=== PATIENT | male | born 1990 | race Caucasian/White ===

== ENCOUNTER 2020-05-06 22:33 | Inpatient (IN) | payer MEDICAID, OTHER ==
[2020-05-06] MEDS ORDERED: Lactated Ringers 1,000 ML IV ONE ×2 (23:01→23:02)
[2020-05-06] MEDS ORDERED: Famotidine 20 MG/2 ML SDV IVPUSH ONE (23:05)
[2020-05-06] MEDS ORDERED: Pantoprazole 40 MG Vial IVPUSH SCH (23:15)
[2020-05-06] MEDS ORDERED: Sucralfate Suspension 1 GM/10 ML Cup PO ONE (23:22)
[2020-05-06] MEDS ORDERED: Ondansetron 4 MG/2 ML SDV IVPUSH ONE (23:22)
--- NOTE | 2020-05-06 23:24 | EDM.PDOC ---
ED HPI GENERAL MEDICAL PROBLEM - General Chief Complaint: Gastrointestinal Problem Stated Complaint: VOMITING BLOOD Time Seen by Provider: 05/06/20 23:05 Source of Information: Reports: Patient, RN. Denies: Old Records History Limitations: Reports: No Limitations - History of Present Illness INITIAL COMMENTS - FREE TEXT/NARRATIVE: 29 yo male presents with dark stools x 2 today and hematemesis x 2 tonight. Is dizzy with standing. Here with his mother. He has no local doctor. Admits to regular ETOH use. No NSAID or anticoagulant use. No hx of PUD. Has had some epigastric and LUQ pain today. No self tx. Onset: Today, Gradual Onset Date: 05/06/20 Duration: Hour(s):, Getting Worse Location: Reports: Abdomen Quality: Reports: Dull Severity: Mild Improves with: Reports: None Worsens with: Reports: Other (unsure) Context: Reports: Other (See HPI) Associated Symptoms: Reports: Nausea/Vomiting. Denies: Fever/Chills Treatments TEACHERS' AIDE: Reports: Other (see below) (none) abd pain Pain Score (Numeric/FACES): 1 - Related Data Allergies Allergy/AdvReac Type Severity Reaction Status Date / Time No Known Allergies Allergy Verified 05/06/20 23:05 Home Meds: Home Meds NK [No Known Home Meds] 05/06/20 [History] Past Medical History Musculoskeletal History: Reports: Fracture - Infectious Disease History Infectious Disease History: Reports: Chicken Pox - Past Surgical History HEENT Surgical History: Reports: TATI Social & Family History - Tobacco Use Tobacco Use Status *Q: Never Tobacco User - Caffeine Use Caffeine Use: Reports: Soda - Recreational Drug Use Recreational Drug Use: No ED ROS GENERAL - Review of Systems Review Of Systems: See Below Constitutional: Reports: No Symptoms HEENT: Reports: No Symptoms Respiratory: Reports: No Symptoms Cardiovascular: Reports: Lightheadedness, Palpitations Endocrine: Reports: No Symptoms GI/Abdominal: Reports: Abdominal Pain (mild at times), Black Stool, Hematemesis, Melena, Nausea, Vomiting. Denies: Bloody Stool, Constipation, Diarrhea, Distension, Hematochezia : Reports: No Symptoms Musculoskeletal: Reports: No Symptoms Skin: Reports: No Symptoms Neurological: Reports: No Symptoms Psychiatric: Reports: No Symptoms ED EXAM, GI/ABD - Physical Exam Exam: See Below Exam Limited By: No Limitations General Appearance: Alert, WD/WN, Mild Distress Eyes: Bilateral: Normal Appearance Ears: Normal External Exam, Normal Canal, Hearing Grossly Normal Nose: Normal Inspection, No Blood Throat/Mouth: Normal Inspection, Normal Lips, Normal Oropharynx, Normal Voice, No Airway Compromise Head: Atraumatic, Normocephalic Neck: Normal Inspection Respiratory/Chest: No Respiratory Distress, Lungs Clear, Normal Breath Sounds, No Accessory Muscle Use Cardiovascular: Regular Rate, Rhythm, No Edema, Tachycardia GI/Abdominal Exam: Normal Bowel Sounds, Soft, Non-Tender, No Distention. No: Distended Back Exam: Normal Inspection Extremities: Normal Inspection, Normal Range of Motion, Non-Tender, No Pedal Edema Neurological: Alert, Oriented, CN II-XII Intact, Normal Cognition, No Motor/Sensory Deficits Psychiatric: Normal Affect, Normal Mood Skin Exam: Warm, Dry, Intact, Normal Color, No Rash, Diaphoretic (mild) Course - Vital Signs Text/Narrative:: Dr. Ball called @ 4206h Last Recorded V/S: Last Vital Signs Temp 37.2 C 05/06/20 23:57 Pulse 128 H 05/06/20 23:57 Resp 14 05/06/20 23:57 BP 128/86 05/06/20 23:57 Pulse Ox 96 05/06/20 23:57 - Orders/Labs/Meds Orders: Active Orders 24 hr Category Date Time Status Cardiac Monitoring [RC] .As Directed Care 05/06/20 23:01 Active Oxygen Therapy Adult [Oxygen Therapy] [RC] ASDIRECTED Care 05/06/20 23:03 Active H. PYLORI STOOL AG, EIA Routine Lab 05/06/20 23:24 Ordered RED BLOOD CELLS LP [BBK] Stat Lab 05/06/20 23:15 Received TYPE AND SCREEN [BBK] Stat Lab 05/06/20 23:15 Received Pantoprazole [ProTONIX IV] Med 05/06/20 23:15 Active 80 mg IVPUSH .BOLUS Medication Orders Pantoprazole Sodium (Protonix Iv) 80 mg IVPUSH .BOLUS JOLIE Last Admin: 05/06/20 23:30 Dose: 80 mg Documented by: LAUREEN Labs: Laboratory Tests 05/06/20 05/06/20 05/06/20 Range/Units 23:10 23:10 23:17 WBC 16.4 H (4.5-11.0) K/uL RBC 4.44 (4.30-5.90) M/uL Hgb 14.6 (12.0-15.0) g/dL Hct 44.4 (40.0-54.0) % MCV 100 H (80-98) fL MCH 33 H (27-31) pg MCHC 33 (32-36) % Plt Count 175 (150-400) K/uL PT 14.8 H (9.5-12.0) sec INR 1.37 H (0.80-1.20) Sodium 140 (140-148) mmol/L Potassium 3.2 L (3.6-5.2) mmol/L Chloride 96 L (100-108) mmol/L Carbon Dioxide 26 (21-32) mmol/L Anion Gap 21.2 H (5.0-14.0) mmol/L BUN 9 (7-18) mg/dL Creatinine 0.9 (0.8-1.3) mg/dL Est Cr Clr Drug Dosing 143.34 mL/min Estimated GFR (MDRD) > 60 (>60) Glucose 135 H (74-106) mg/dL Lactic Acid (0.4-2.0) mmol/L Calcium 8.7 (8.5-10.1) mg/dL Magnesium (1.8-2.4) mg/dL Total Bilirubin 2.3 H (0.2-1.0) mg/dL AST 197 H (15-37) U/L ALT 33 (12-78) U/L Alkaline Phosphatase 157 H (46-116) U/L Total Protein 7.8 (6.4-8.2) g/dL Albumin 3.2 L (3.4-5.0) g/dL Globulin 4.6 H (2.3-3.5) g/dL Albumin/Globulin Ratio 0.7 L (1.2-2.2) 05/06/20 05/06/20 Range/Units 23:25 23:58 WBC (4.5-11.0) K/uL RBC (4.30-5.90) M/uL Hgb (12.0-15.0) g/dL Hct (40.0-54.0) % MCV (80-98) fL MCH (27-31) pg MCHC (32-36) % Plt Count (150-400) K/uL PT (9.5-12.0) sec INR (0.80-1.20) Sodium (140-148) mmol/L Potassium (3.6-5.2) mmol/L Chloride (100-108) mmol/L Carbon Dioxide (21-32) mmol/L Anion Gap (5.0-14.0) mmol/L BUN (7-18) mg/dL Creatinine (0.8-1.3) mg/dL Est Cr Clr Drug Dosing mL/min Estimated GFR (MDRD) (>60) Glucose (74-106) mg/dL Lactic Acid 5.2 H (0.4-2.0) mmol/L Calcium (8.5-10.1) mg/dL Magnesium 1.1 L (1.8-2.4) mg/dL Total Bilirubin (0.2-1.0) mg/dL AST (15-37) U/L ALT (12-78) U/L Alkaline Phosphatase (46-116) U/L Total Protein (6.4-8.2) g/dL Albumin (3.4-5.0) g/dL Globulin (2.3-3.5) g/dL Albumin/Globulin Ratio (1.2-2.2) Meds: Medications Generic Name Dose Route Start Last Admin Trade Name Helderq PRN Reason Stop Dose Admin Pantoprazole Sodium 80 mg 05/06/20 23:15 05/06/20 23:30 Protonix Iv IVPUSH 80 mg .BOLUS JOLIE Administration Discontinued Medications Generic Name Dose Route Start Last Admin Trade Name Freq PRN Reason Stop Dose Admin Famotidine 20 mg 05/06/20 23:05 05/06/20 23:24 Pepcid IVPUSH 05/06/20 23:06 20 mg ONETIME ONE Administration Lactated Ringer's 1,000 mls @ 1,000 mls/hr 05/06/20 23:01 05/06/20 23:24 Ringers, Lactated IV 05/07/20 00:00 1,000 mls/hr BOLUS ONE Administration Lactated Ringer's 1,000 mls @ 1,000 mls/hr 05/06/20 23:02 05/06/20 23:55 Ringers, Lactated IV 05/07/20 00:01 1,000 mls/hr BOLUS ONE Administration Ondansetron HCl 4 mg 05/06/20 23:22 05/06/20 23:39 Zofran IVPUSH 05/06/20 23:23 4 mg ONETIME ONE Administration Sucralfate 1 gm 05/06/20 23:22 05/06/20 23:43 Carafate PO 05/06/20 23:23 1 gm ONETIME ONE Administration Departure - Departure Time of Disposition: 00:10 Disposition: Admitted As Inpatient 68 Condition: Serious Clinical Impression: Hypokalemia, Elevated LFTs, Hypomagnesemia GI bleed Qualifiers: GI bleed type/associated pathology: gastrointestinal hemorrhage with hematemesis Qualified Code(s): K92.0 - Hematemesis - Discharge Information *PRESCRIPTION DRUG MONITORING PROGRAM REVIEWED*: Not Applicable *COPY OF PRESCRIPTION DRUG MONITORING REPORT IN PATIENT MARY: Not Applicable Referrals: PCP,None [Primary Care Provider] - Forms: ED Department Discharge Sepsis Event Note (ED) - Evaluation Sepsis Screening Result: No Definite Risk - Focused Exam Vital Signs: Vital Signs Temp Pulse Resp BP Pulse Ox 05/06/20 23:57 37.2 C 128 H 14 128/86 96 05/06/20 22:58 37.0 C 148 H 13 137/82 93 L 05/06/20 22:57 37.0 C 148 H 13 137/82 93 L - My Orders Last 24 Hours: My Active Orders 05/06/20 23:01 Cardiac Monitoring [RC] .As Directed 05/06/20 23:03 Oxygen Therapy Adult [Oxygen Therapy] [RC] ASDIRECTED 05/06/20 23:15 RED BLOOD CELLS LP [BBK] Stat TYPE AND SCREEN [BBK] Stat Pantoprazole [ProTONIX IV] 80 mg IVPUSH .BOLUS 05/06/20 23:24 H. PYLORI STOOL AG, EIA Routine - Assessment/Plan Last 24 Hours: My Active Orders 05/06/20 23:01 Cardiac Monitoring [RC] .As Directed 05/06/20 23:03 Oxygen Therapy Adult [Oxygen Therapy] [RC] ASDIRECTED 05/06/20 23:15 RED BLOOD CELLS LP [BBK] Stat TYPE AND SCREEN [BBK] Stat Pantoprazole [ProTONIX IV] 80 mg IVPUSH .BOLUS 05/06/20 23:24 H. PYLORI STOOL AG, EIA Routine
[2020-05-07] MEDS ORDERED: LORazepam 2 MG/ML SDV IM PRN (01:22)
[2020-05-07] MEDS ORDERED: Ondansetron 4 MG/2 ML SDV IVPUSH PRN (01:22)
[2020-05-07] MEDS: Lactated Ringers 1,000 ML IV SCH ×3 (02:06→18:48)
[2020-05-07] MEDS ORDERED: Midazolam 1 MG/ML 2 ML SDV ONE (07:25)
[2020-05-07] MEDS ORDERED: fentaNYL 100 MCG/2 ML SDV ONE (07:25)
[2020-05-07] MEDS ORDERED: Propofol 200 MG/20 ML SDV ONE ×2 (07:25→07:44)
[2020-05-07] MEDS ORDERED: Ondansetron 4 MG/2 ML SDV ONE (07:47)
[2020-05-07] MEDS ORDERED: Lactated Ringers 1,000 ML ONE (07:47)
[2020-05-07] MEDS ORDERED: Pantoprazole 40 MG Vial IVPUSH SCH (08:00)
[2020-05-07] MEDS ORDERED: Pantoprazole 40 MG Vial IVPUSH ONE (08:30)
[2020-05-07] MEDS: Pantoprazole 80 MG in Sodium Chloride 0.9% 100 ML IV SCH ×2 (09:08→17:51)
[2020-05-07] MEDS ORDERED: LORazepam 2 MG/ML SDV IV SCH (10:15)
[2020-05-07] MEDS: Thiamine 100 MG Tab PO SCH (10:19)
[2020-05-07] MEDS: Folic Acid 1 MG Tab PO SCH (10:19)
[2020-05-07] MEDS: Gabapentin 400 MG Cap PO SCH ×2 (10:19→17:54)
[2020-05-07] MEDS: LORazepam 1 MG Tab PO SCH ×3 (10:22→16:05)
--- NOTE | 2020-05-07 12:37 | HP ---
SUBJECTIVE: Mehran Ruiz is a 29-year-old single male from [facility]. CHIEF COMPLAINT: Stomach upset. HISTORY OF PRESENT ILLNESS: A young adult male without a history of chronic health problems. Reports development of nonspecific upper abdominal discomfort as well as anorexia this afternoon with passage of melenic stools and subsequent development of nausea with hematemesis including bright red blood as well as coffee-ground emesis. He has noted abdominal cramping and distention as well. Does have a several week history of intermittent mild dyspepsia with p.r.n. use of calcium antacids. No prior history of chronic GI disease. Denies a history of hepatitis, jaundice, gallbladder disease or peptic ulcer disease. Bowel movements are typically regular, predictable, and brown in appearance. He is a lifelong nonsmoker. Caffeine intake is moderate, estimating 5 to 10 cans of regular Coke drunk daily. Does not use coffee. Alcohol use is high, binge drinking, approximately 20 alcoholic drinks weekly. Does not routinely use nonsteroidals or aspirin product. PAST MEDICAL HISTORY: Previous surgeries include arthroscopy of the left knee and pinning of a fracture of the left thumb in the remote past. No other surgical procedures or hospitalizations. Does have history of previous laceration injuries including right facial area in summer, requiring outpatient surgical repair. ALLERGIES: NONE NOTED. HABITS: No tobacco use. Caffeine use as noted, 5 to 10 regular Cokes per day. Alcohol use of 20 drinks weekly. IMMUNIZATIONS: Does not receive influenza vaccine. Has not had previous COVID vaccine. MEDICATIONS: None used on a regular basis, p.r.n. use of calcium antacids. 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 Currently residing with his parents in their [facility] residence. He generally performs ADLs independently. He drives without difficulty. FAMILY HISTORY: Denies familial history of chronic GI disease or recent acute intestinal infection. No family history of COVID infection. REVIEW OF SYSTEMS: NEUROLOGIC: No history of stroke, seizures, focal weakness. Does not require glasses. CARDIAC: No history of hypertension, diabetes, congenital heart disease, murmur, PR, chest pain, palpitations, or syncope. Mild dizziness is noted when rising upright. RESPIRATORY: Denies asthma, emphysema, chronic cough, tuberculosis, or recent COVID exposure. GASTROINTESTINAL: As above. GENITOURINARY: No chronic renal disease. Voiding stream is strong. No dysuria or incontinence. PHYSICAL EXAMINATION: GENERAL: Appearance is that of an adult male, in no acute distress. Mildly anxious in presentation. VITAL SIGNS: Initial vitals, temperature 37.2 degrees centigrade, pulse is tachycardic at 128, respiratory rate 14, blood pressure 128/86, O2 sats 96% on room air. HEENT: Hearing is intact. Sclerae anicteric. No oropharyngeal lesions. NECK: Brisk carotid pulses. Tachycardic. No murmurs or gallops noted. No JVD. No stridor. LUNGS: Symmetrical, clear, resonant, non-tachypneic. HEART: Tachycardic, regular without murmurs or gallops. ABDOMEN: Active sounds. No guarding, rebound, or referred pain. No obvious organomegaly. No CVA tenderness. Good femoral pulses. No abdominal bruits. GENITOURINARY and RECTAL: Omitted. EXTREMITIES: Warm, pink, and dry. Good turgor. Non-diaphoretic. Good arterial pulses. Brisk capillary refill. Oriented. Sensorium is intact. Engages in conversation. No dizziness or lightheadedness with bedrest. LABORATORY DATA: On admission; WBC 16.4, hemoglobin 14.6, platelet count 175,000. Protime at 14.8 with INR of 1.37. Sodium 140, potassium 3.2, BUN 9, creatinine 0.9, GFR greater than 60, glucose 135 in a nonfasting state. Calcium 8.7, bilirubin elevated at 2.3, AST 197, ALT 33, alkaline phosphatase 157, globulin level is high at 4.6, lactic acid 5.2, magnesium 1.1. IMPRESSION: 1. Acute upper gastrointestinal bleed with hematemesis, coffee-ground emesis, and melenic stools of 1 day's duration. 2. Elevated liver functions suggesting possible liver-induced changes. Consider alcohol- related presentation with patient confirming binge drinking use of alcohol. PLAN: The patient is admitted to the ICU for continued monitoring. Tachycardic rate is evident, though hemoglobin is currently stable at 14.6. We will maintain IV fluid access with LR at 150 mL/hour. Hemoglobins at 2-hour intervals x4. We will transfuse if showing a hemoglobin drop below 10. Consult Surgical Services and request diagnostic EGD in the morning. Additionally for reasons of elevated liver functions, we will review further with hepatitis panel, serum ferritin, iron and total iron-binding capacity as well as upper abdominal ultrasound to assess for hepatobiliary disease. Full code status is instituted. Currently will maintain n.p.o. status for anticipated EGD. Allowed ambulation with standby assistance within the room. Delroy Ball MD /[id number]
--- NOTE | 2020-05-07 13:29 | PCM.PN ---
- General Info Date of Service: 05/07/20 Subjective Update: Mr. Ruiz is a 29-year-old gentleman who was admitted through the emergency department earlier this morning by Dr. Ball with hematemesis secondary to an upper GI bleed. Mr. Ruiz has had a long standing history of alcohol dependence and abuse. He admits that he has been drinking heavier than usual over the past month. Last night he experienced abrupt onset of epigastric abdominal pain associated with hematemesis. He was admitted through the emergency department and has had a mild drop in hemoglobin since admission. There has been no further evidence of active bleeding. EGD performed this morning by Dr. Varela showed evidence of esophageal varices with esophageal erosions and ulcers consistent with a recent bleeding source. There was no evidence of active bleeding blood clots were present. Functional Status: Reports: Urinating - Review of Systems General: Reports: Weakness, Fatigue Pulmonary: Reports: No Symptoms Cardiovascular: Reports: No Symptoms Gastrointestinal: Reports: No Symptoms Genitourinary: Reports: No Symptoms - Patient Data Vitals - Most Recent: Last Vital Signs Temp 98.0 F 05/07/20 12:00 Pulse 120 H 05/07/20 13:00 Resp 20 05/07/20 13:00 BP 138/94 H 05/07/20 13:00 Pulse Ox 93 L 05/07/20 13:00 Weight - Most Recent: 239 lb 1.6 oz I&O - Last 24 Hours: Intake & Output 05/06/20 05/07/20 05/07/20 22:59 06:59 14:59 Intake Total 150 Output Total 400 100 Balance -400 50 Lab Results Last 24 Hours: Laboratory Results - last 24 hr 05/06/20 05/06/20 05/06/20 Range/Units 23:10 23:10 23:15 WBC 16.4 H (4.5-11.0) K/uL RBC 4.44 (4.30-5.90) M/uL Hgb 14.6 (12.0-15.0) g/dL Hct 44.4 (40.0-54.0) % MCV 100 H (80-98) fL MCH 33 H (27-31) pg MCHC 33 (32-36) % Plt Count 175 (150-400) K/uL PT (9.5-12.0) sec INR (0.80-1.20) Sodium 140 (140-148) mmol/L Potassium 3.2 L (3.6-5.2) mmol/L Chloride 96 L (100-108) mmol/L Carbon Dioxide 26 (21-32) mmol/L Anion Gap 21.2 H (5.0-14.0) mmol/L BUN 9 (7-18) mg/dL Creatinine 0.9 (0.8-1.3) mg/dL Est Cr Clr Drug Dosing 143.34 mL/min Estimated GFR (MDRD) > 60 (>60) Glucose 135 H (74-106) mg/dL Lactic Acid (0.4-2.0) mmol/L Calcium 8.7 (8.5-10.1) mg/dL Magnesium (1.8-2.4) mg/dL Iron (65-175) ug/dL TIBC (250-450) ug/dl % Saturation (20-55) % Ferritin (8-388) ng/ml Total Bilirubin 2.3 H (0.2-1.0) mg/dL AST 197 H (15-37) U/L ALT 33 (12-78) U/L Alkaline Phosphatase 157 H (46-116) U/L Total Protein 7.8 (6.4-8.2) g/dL Albumin 3.2 L (3.4-5.0) g/dL Globulin 4.6 H (2.3-3.5) g/dL Albumin/Globulin Ratio 0.7 L (1.2-2.2) SARS CoV-2 RNA Rapid ADAM Blood Type O POSITIVE Gel Antibody Screen Negative Crossmatch See Detail 05/06/20 05/06/20 05/06/20 Range/Units 23:17 23:25 23:58 WBC (4.5-11.0) K/uL RBC (4.30-5.90) M/uL Hgb (12.0-15.0) g/dL Hct (40.0-54.0) % MCV (80-98) fL MCH (27-31) pg MCHC (32-36) % Plt Count (150-400) K/uL PT 14.8 H (9.5-12.0) sec INR 1.37 H (0.80-1.20) Sodium (140-148) mmol/L Potassium (3.6-5.2) mmol/L Chloride (100-108) mmol/L Carbon Dioxide (21-32) mmol/L Anion Gap (5.0-14.0) mmol/L BUN (7-18) mg/dL Creatinine (0.8-1.3) mg/dL Est Cr Clr Drug Dosing mL/min Estimated GFR (MDRD) (>60) Glucose (74-106) mg/dL Lactic Acid 5.2 H (0.4-2.0) mmol/L Calcium (8.5-10.1) mg/dL Magnesium 1.1 L (1.8-2.4) mg/dL Iron (65-175) ug/dL TIBC (250-450) ug/dl % Saturation (20-55) % Ferritin (8-388) ng/ml Total Bilirubin (0.2-1.0) mg/dL AST (15-37) U/L ALT (12-78) U/L Alkaline Phosphatase (46-116) U/L Total Protein (6.4-8.2) g/dL Albumin (3.4-5.0) g/dL Globulin (2.3-3.5) g/dL Albumin/Globulin Ratio (1.2-2.2) SARS CoV-2 RNA Rapid ADAM Blood Type Gel Antibody Screen Crossmatch 05/07/20 05/07/20 05/07/20 Range/Units 01:29 01:29 02:05 WBC 14.4 H (4.5-11.0) K/uL RBC 4.10 L (4.30-5.90) M/uL Hgb 13.5 (12.0-15.0) g/dL Hct 41.1 (40.0-54.0) % MCV 100 H (80-98) fL MCH 33 H (27-31) pg MCHC 33 (32-36) % Plt Count 140 L (150-400) K/uL PT (9.5-12.0) sec INR (0.80-1.20) Sodium (140-148) mmol/L Potassium (3.6-5.2) mmol/L Chloride (100-108) mmol/L Carbon Dioxide (21-32) mmol/L Anion Gap (5.0-14.0) mmol/L BUN (7-18) mg/dL Creatinine (0.8-1.3) mg/dL Est Cr Clr Drug Dosing mL/min Estimated GFR (MDRD) (>60) Glucose (74-106) mg/dL Lactic Acid (0.4-2.0) mmol/L Calcium (8.5-10.1) mg/dL Magnesium (1.8-2.4) mg/dL Iron 179 H (65-175) ug/dL TIBC 257 (250-450) ug/dl % Saturation 70 H (20-55) % Ferritin 1149 H (8-388) ng/ml Total Bilirubin (0.2-1.0) mg/dL AST (15-37) U/L ALT (12-78) U/L Alkaline Phosphatase (46-116) U/L Total Protein (6.4-8.2) g/dL Albumin (3.4-5.0) g/dL Globulin (2.3-3.5) g/dL Albumin/Globulin Ratio (1.2-2.2) SARS CoV-2 RNA Rapid ADAM Blood Type Gel Antibody Screen Crossmatch 05/07/20 05/07/20 05/07/20 Range/Units 04:16 06:00 06:48 WBC 13.8 H 14.9 H (4.5-11.0) K/uL RBC 3.96 L 4.08 L (4.30-5.90) M/uL Hgb 13.1 13.5 (12.0-15.0) g/dL Hct 40.2 41.2 (40.0-54.0) % MCV 102 H 101 H (80-98) fL MCH 33 H 33 H (27-31) pg MCHC 33 33 (32-36) % Plt Count 133 L 130 L (150-400) K/uL PT (9.5-12.0) sec INR (0.80-1.20) Sodium (140-148) mmol/L Potassium (3.6-5.2) mmol/L Chloride (100-108) mmol/L Carbon Dioxide (21-32) mmol/L Anion Gap (5.0-14.0) mmol/L BUN (7-18) mg/dL Creatinine (0.8-1.3) mg/dL Est Cr Clr Drug Dosing mL/min Estimated GFR (MDRD) (>60) Glucose (74-106) mg/dL Lactic Acid (0.4-2.0) mmol/L Calcium (8.5-10.1) mg/dL Magnesium (1.8-2.4) mg/dL Iron (65-175) ug/dL TIBC (250-450) ug/dl % Saturation (20-55) % Ferritin (8-388) ng/ml Total Bilirubin (0.2-1.0) mg/dL AST (15-37) U/L ALT (12-78) U/L Alkaline Phosphatase (46-116) U/L Total Protein (6.4-8.2) g/dL Albumin (3.4-5.0) g/dL Globulin (2.3-3.5) g/dL Albumin/Globulin Ratio (1.2-2.2) SARS CoV-2 RNA Rapid ADAM Negative Blood Type Gel Antibody Screen Crossmatch 05/07/20 05/07/20 Range/Units 08:45 11:00 WBC 14.6 H (4.5-11.0) K/uL RBC 3.98 L (4.30-5.90) M/uL Hgb 13.0 13.0 (12.0-15.0) g/dL Hct 40.1 (40.0-54.0) % MCV 101 H (80-98) fL MCH 33 H (27-31) pg MCHC 32 (32-36) % Plt Count 129 L (150-400) K/uL PT (9.5-12.0) sec INR (0.80-1.20) Sodium (140-148) mmol/L Potassium (3.6-5.2) mmol/L Chloride (100-108) mmol/L Carbon Dioxide (21-32) mmol/L Anion Gap (5.0-14.0) mmol/L BUN (7-18) mg/dL Creatinine (0.8-1.3) mg/dL Est Cr Clr Drug Dosing mL/min Estimated GFR (MDRD) (>60) Glucose (74-106) mg/dL Lactic Acid (0.4-2.0) mmol/L Calcium (8.5-10.1) mg/dL Magnesium (1.8-2.4) mg/dL Iron (65-175) ug/dL TIBC (250-450) ug/dl % Saturation (20-55) % Ferritin (8-388) ng/ml Total Bilirubin (0.2-1.0) mg/dL AST (15-37) U/L ALT (12-78) U/L Alkaline Phosphatase (46-116) U/L Total Protein (6.4-8.2) g/dL Albumin (3.4-5.0) g/dL Globulin (2.3-3.5) g/dL Albumin/Globulin Ratio (1.2-2.2) SARS CoV-2 RNA Rapid ADAM Blood Type Gel Antibody Screen Crossmatch Med Orders - Current: Current Medications Folic Acid (Folic Acid) 1 mg PO DAILY [facility] Last Admin: 05/07/20 10:19 Dose: 1 mg Documented by: Gabapentin (Neurontin) 400 mg PO Q8H [facility] Stop: 05/08/20 10:31 Last Admin: 05/07/20 10:19 Dose: 400 mg Documented by: Pantoprazole Sodium 80 mg/ (Sodium Chloride) 100 mls @ 10 mls/hr IV Q10H [facility] Last Admin: 05/07/20 09:08 Dose: 10 mls/hr Documented by: Lorazepam (Ativan) 0 mg IV ASDIRECTED [facility]; Protocol Lorazepam (Ativan) 0 mg PO ASDIRECTED [facility]OL[facility]; Protocol Last Admin: 05/07/20 12:12 Dose: 2 mg Documented by: Ondansetron HCl (Zofran) 4 mg IVPUSH Q4H PRN PRN Reason: Nausea/Vomiting Last Admin: 05/07/20 04:14 Dose: 4 mg Documented by: Thiamine HCl (Vitamin B-1) 100 mg PO DAILY [facility]OL[facility] Last Admin: 05/07/20 10:19 Dose: 100 mg Documented by: Discontinued Medications Famotidine (Pepcid) 20 mg IVPUSH ONETIME ONE Stop: 05/06/20 23:06 Last Admin: 05/06/20 23:24 Dose: 20 mg Documented by: Fentanyl (Sublimaze) Confirm Administered Dose 100 mcg .ROUTE .STK-MED ONE Stop: 05/07/20 07:26 Lactated Ringer's (Ringers, Lactated) 1,000 mls @ 1,000 mls/hr IV BOLUS ONE Stop: 05/07/20 00:00 Last Admin: 05/06/20 23:24 Dose: 1,000 mls/hr Documented by: Lactated Ringer's (Ringers, Lactated) 1,000 mls @ 1,000 mls/hr IV BOLUS ONE Stop: 05/07/20 00:01 Last Admin: 05/06/20 23:55 Dose: 1,000 mls/hr Documented by: Lactated Ringer's (Ringers, Lactated) 1,000 mls @ 150 mls/hr IV ASDIRECTED [facility] Last Admin: 05/07/20 12:50 Dose: 150 mls/hr Documented by: Lactated Ringer's (Ringers, Lactated) Confirm Administered Dose 1,000 mls @ as directed .ROUTE .STK-MED ONE Stop: 05/07/20 07:48 Lorazepam (Ativan) 1 mg IM Q4H PRN PRN Reason: Anxiety Midazolam HCl (Versed 1 Mg/Ml) Confirm Administered Dose 2 mg .ROUTE .STK-MED ONE Stop: 05/07/20 07:26 Ondansetron HCl (Zofran) 4 mg IVPUSH ONETIME ONE Stop: 05/06/20 23:23 Last Admin: 05/06/20 23:39 Dose: 4 mg Documented by: Ondansetron HCl (Zofran) Confirm Administered Dose 4 mg .ROUTE .STK-MED ONE Stop: 05/07/20 07:48 Pantoprazole Sodium (Protonix Iv) 80 mg IVPUSH .BOLUS [facility] Last Admin: 05/06/20 23:30 Dose: 80 mg Documented by: Pantoprazole Sodium (Protonix Iv) 40 mg IVPUSH ONETIME ONE Stop: 05/07/20 08:31 Last Admin: 05/07/20 09:07 Dose: 40 mg Documented by: Propofol (Diprivan 20 Ml) Confirm Administered Dose 200 mg .ROUTE .STK-MED ONE Stop: 05/07/20 07:26 Propofol (Diprivan 20 Ml) Confirm Administered Dose 200 mg .ROUTE .STK-MED ONE Stop: 05/07/20 07:45 Sucralfate (Carafate) 1 gm PO ONETIME ONE Stop: 05/06/20 23:23 Last Admin: 05/06/20 23:43 Dose: 1 gm Documented by: - Exam Quality Assessment: DVT Prophylaxis General: Alert, Oriented, Cooperative Lungs: Clear to Auscultation, Normal Respiratory Effort Cardiovascular: Regular Rate, Regular Rhythm, No Murmurs GI/Abdominal Exam: Soft, Non-Tender, No Organomegaly, No Distention Back Exam: Normal Inspection, Full Range of Motion Extremities: Non-Tender, No Pedal Edema Sepsis Event Note - Evaluation Sepsis Screening Result: Sepsis Risk - Focused Exam Vital Signs: Vital Signs Temp Pulse Pulse Resp BP Pulse Ox 05/07/20 13:00 120 H 20 138/94 H 93 L 05/07/20 12:00 98.0 F 116 H 19 141/91 H 94 L 05/07/20 11:00 118 H 22 H 148/99 H 90 L 05/07/20 09:15 98.0 F 128 H 19 143/86 H 92 L 05/07/20 09:00 125 H 16 140/81 93 L 05/07/20 08:45 126 H 19 135/89 93 L 05/07/20 08:30 123 H 18 143/81 H 92 L 05/07/20 08:15 98.0 F 129 H 16 143/82 H 91 L 05/07/20 08:10 97.2 F 124 H 135/83 95 05/07/20 08:05 122 H 24 H 130/81 95 05/07/20 08:01 124 H 24 H 139/82 94 L 05/07/20 07:56 130 H 20 120/77 98 05/07/20 07:50 97.5 F 136 H 16 126/68 98 05/07/20 07:29 98.5 F 132 H 18 135/77 93 L 05/07/20 06:00 125 H 18 142/90 H 95 05/07/20 05:00 133 H 18 134/87 94 L 05/07/20 04:00 139 H 18 140/93 H 93 L 05/07/20 03:00 140 H 17 131/82 95 05/07/20 02:00 134 H 16 135/86 94 L 05/07/20 01:26 136 H 11 L 96 - Problem List Review Problem List Initiated/Reviewed/Updated: Yes - My Orders Last 24 Hours: My Active Orders 05/07/20 08:40 Pantoprazole [ProTONIX IV] 80 mg Sodium Chloride 0.9% [Normal Saline] 100 ml IV Q10H 05/07/20 10:09 CIWAA Assessment [RC] Q4H Notify Provider [RC] PRN 05/07/20 10:15 Folic Acid 1 mg PO DAILY LORazepam [Ativan] See Protocol IV ASDIRECTED LORazepam [Ativan] See Protocol PO ASDIRECTED Thiamine [Vitamin B-1] 100 mg PO DAILY 05/07/20 10:30 Gabapentin [Neurontin] 400 mg PO Q8H 05/07/20 13:18 Convert IV to Saline Lock [OM.PC] Routine 05/08/20 05:00 ACTIN (SMOOTH MUSCLE) ANTIBODY Routine ABEBA W/REFLEX Routine CBC WITH AUTO DIFF [HEME] Timed CERULOPLASMIN Routine COMPREHENSIVE METABOLIC PN,CMP [CHEM] Timed INR,PT,PROTHROMBIN TIME [COAG] Timed - Plan Plan:: ASSESSMENT AND PLAN UPPER GI BLEED-noted to have esophageal erosions and ulcers with clots, no evidence of active bleeding. Also found to have esophageal varices consistent with probable underlying liver disease. -Protonix bolus given and started on continuous infusion of Protonix -N.p.o. -Serial hemoglobin levels ALCOHOL WITHDRAWAL-he has already shown evidence of withdrawal with tremor developing this morning. -Gabapentin 400 mg p.o. every 8 hours x4 days, then 200 mg p.o. every 8 hours x4 days -Alcohol withdrawal protocol -Thiamine and folic acid replacement PROBABLE HEPATIC CIRRHOSIS-esophageal varices noted on EGD. He will require further imaging and evaluation. Likely that heavy alcohol use has contributed although he is fairly young at 29. Will require evaluation for other possible causes of liver disease as well. -Further laboratory evaluation; hepatitis panel pending, antimitochondrial antibody, antismooth muscle antibody, ferritin, ceruloplasmin, ABEBA -Further imaging; he is developing alcohol withdrawal and I do not think at this time that he would be able to lie still for further studies, these can be obtained later -Stop all alcohol use ESOPHAGEAL VARICES-likely secondary to underlying significant liver disease -Nadolol 20 mg p.o. daily, titrate dose upward as tolerated -Outpatient follow-up with gastroenterology MAINTENANCE ISSUES -DVT prophylaxis; anticoagulation not indicated with current GI bleed -GI prophylaxis; Protonix as above -Lazaro catheter; not indicated -Nutrition; n.p.o. -Nicotine dependence; not required CODE STATUS-FULL CODE ADMISSION STATUS-patient will be admitted to inpatient status, expect at least a 2 night hospital stay for evaluation and management of problems as outlined above. At the time of this admission I do not reasonably expected evaluation and management of this problem will require more than a 96 hour hospital stay. DISPOSITION-anticipate discharge to home after the hospital stay.
--- NOTE | 2020-05-07 15:28 | CRLUS ---
INDICATION: Abnormal liver function test. Upper GI bleed. TECHNIQUE: Ultrasound abdomen limited. Sonographic images of the right upper quadrant were obtained using swan-scale and color Doppler images. COMPARISON: None FINDINGS: Liver: Hepatic echotexture is diffusely increased consistent with fatty infiltration. It is mildly enlarged measuring 18.1 cm.. No masses. No intrahepatic biliary dilatation. The main portal vein demonstrates hepatopetal flow. Gallbladder: There is a moderate amount of echogenic sludge within the gallbladder lumen. No definite echogenic shadowing calculus. Normal wall thickness. No pericholecystic fluid. Negative sonographic Monroy`s sign. Common bile duct: Normal in caliber measuring 4 mm. Pancreas: Obscured. Right kidney: Measures 10.2 x 4.8 x 6.1 cm. Normal echotexture and cortex. No masses, stones, or hydronephrosis. Vasculature: Upper abdominal IVC is patent. IMPRESSION: 1. Mild hepatomegaly with steatosis. 2. Moderate amount of gallbladder sludge. Dictated by Valentín Carmona MD @ 05/07/2020 3:27:27 PM Dictated by: Valentín Carmona MD @ 05/07/2020 15:27:46 (Electronically Signed)
[2020-05-08] MEDS: Gabapentin 400 MG Cap PO SCH ×3 (03:07→21:14)
[2020-05-08] MEDS: Pantoprazole 80 MG in Sodium Chloride 0.9% 100 ML IV SCH ×4 (03:07→23:06)
[2020-05-08] MEDS: Thiamine 100 MG Tab PO SCH (08:20)
[2020-05-08] MEDS: Folic Acid 1 MG Tab PO SCH (08:20)
--- NOTE | 2020-05-08 11:18 | PCM.PN ---
- General Info Date of Service: 05/08/20 Subjective Update: Mr. Ruiz has been stable since yesterday, with no further evidence of active bleeding. He has had mild symptoms of alcohol withdrawal but nothing severe to this point. He feels more clear and alert than he has for some time. Functional Status: Reports: Urinating - Review of Systems General: Reports: No Symptoms Pulmonary: Reports: No Symptoms Cardiovascular: Reports: No Symptoms Gastrointestinal: Reports: No Symptoms Genitourinary: Reports: No Symptoms - Patient Data Vitals - Most Recent: Last Vital Signs Temp 98.9 F 05/08/20 08:00 Pulse 93 05/08/20 08:20 Resp 12 05/08/20 08:00 BP 143/96 H 05/08/20 08:20 Pulse Ox 95 05/08/20 08:00 Weight - Most Recent: 239 lb 1.6 oz I&O - Last 24 Hours: Intake & Output 05/07/20 05/08/20 05/08/20 22:59 06:59 14:59 Intake Total 1167 425 Output Total 950 Balance 1167 -525 Lab Results Last 24 Hours: Laboratory Results - last 24 hr 05/07/20 05/08/20 05/08/20 Range/Units 11:00 04:00 04:00 WBC 11.6 H (4.5-11.0) K/uL RBC 3.69 L (4.30-5.90) M/uL Hgb 13.0 12.4 (12.0-15.0) g/dL Hct 38.3 L (40.0-54.0) % MCV 104 H (80-98) fL MCH 34 H (27-31) pg MCHC 32 (32-36) % Plt Count 105 L (150-400) K/uL Neut % (Auto) 78 H (36-66) % Lymph % (Auto) 13 L (24-44) % [place] % (Auto) 8 H (2-6) % Eos % (Auto) 0 L (2-4) % Baso % (Auto) 1 (0-1) % PT 14.7 H (9.5-12.0) sec INR 1.36 H (0.80-1.20) Sodium (140-148) mmol/L Potassium (3.6-5.2) mmol/L Chloride (100-108) mmol/L Carbon Dioxide (21-32) mmol/L Anion Gap (5.0-14.0) mmol/L BUN (7-18) mg/dL Creatinine (0.8-1.3) mg/dL Est Cr Clr Drug Dosing mL/min Estimated GFR (MDRD) (>60) Glucose (74-106) mg/dL Calcium (8.5-10.1) mg/dL Total Bilirubin (0.2-1.0) mg/dL AST (15-37) U/L ALT (12-78) U/L Alkaline Phosphatase (46-116) U/L Total Protein (6.4-8.2) g/dL Albumin (3.4-5.0) g/dL Globulin (2.3-3.5) g/dL Albumin/Globulin Ratio (1.2-2.2) 05/08/20 Range/Units 04:00 WBC (4.5-11.0) K/uL RBC (4.30-5.90) M/uL Hgb (12.0-15.0) g/dL Hct (40.0-54.0) % MCV (80-98) fL MCH (27-31) pg MCHC (32-36) % Plt Count (150-400) K/uL Neut % (Auto) (36-66) % Lymph % (Auto) (24-44) % [place] % (Auto) (2-6) % Eos % (Auto) (2-4) % Baso % (Auto) (0-1) % PT (9.5-12.0) sec INR (0.80-1.20) Sodium 139 L (140-148) mmol/L Potassium 3.6 (3.6-5.2) mmol/L Chloride 100 (100-108) mmol/L Carbon Dioxide 30 (21-32) mmol/L Anion Gap 12.6 (5.0-14.0) mmol/L BUN 12 (7-18) mg/dL Creatinine 1.0 (0.8-1.3) mg/dL Est Cr Clr Drug Dosing 129.01 mL/min Estimated GFR (MDRD) > 60 (>60) Glucose 79 (74-106) mg/dL Calcium 8.3 L (8.5-10.1) mg/dL Total Bilirubin 3.9 H D (0.2-1.0) mg/dL AST 162 H (15-37) U/L ALT 26 (12-78) U/L Alkaline Phosphatase 113 (46-116) U/L Total Protein 6.7 (6.4-8.2) g/dL Albumin 2.8 L (3.4-5.0) g/dL Globulin 3.9 H (2.3-3.5) g/dL Albumin/Globulin Ratio 0.7 L (1.2-2.2) Jamir Results Last 24 Hours: Microbiology 05/07/20 08:26 CLOtest - Final Stomach NEGATIVE CLOTEST REFERENCE RANGE: NEGATIVE Med Orders - Current: Current Medications Folic Acid (Folic Acid) 1 mg PO DAILY [facility] Last Admin: 05/08/20 08:20 Dose: 1 mg Documented by: Gabapentin (Neurontin) 400 mg PO Q8H [facility] Stop: 05/11/20 06:01 Pantoprazole Sodium 80 mg/ (Sodium Chloride) 100 mls @ 10 mls/hr IV Q10H [facility] Last Admin: 05/08/20 04:34 Dose: Not Given Documented by: Lorazepam (Ativan) 0 mg IV ASDIRECTED [facility]; Protocol Lorazepam (Ativan) 0 mg PO ASDIRECTED [facility]OL[facility]; Protocol Last Admin: 05/07/20 16:05 Dose: 1 mg Documented by: Nadolol (Naldol) 20 mg PO DAILY [facility] Last Admin: 05/08/20 08:20 Dose: 20 mg Documented by: Ondansetron HCl (Zofran) 4 mg IVPUSH Q4H PRN PRN Reason: Nausea/Vomiting Last Admin: 05/07/20 04:14 Dose: 4 mg Documented by: Thiamine HCl (Vitamin B-1) 100 mg PO DAILY [facility] Last Admin: 05/08/20 08:20 Dose: 100 mg Documented by: Discontinued Medications Famotidine (Pepcid) 20 mg IVPUSH ONETIME ONE Stop: 05/06/20 23:06 Last Admin: 05/06/20 23:24 Dose: 20 mg Documented by: Fentanyl (Sublimaze) Confirm Administered Dose 100 mcg .ROUTE .STK-MED ONE Stop: 05/07/20 07:26 Gabapentin (Neurontin) 400 mg PO Q8H [facility] Stop: 05/11/20 02:31 Last Admin: 05/08/20 03:07 Dose: 400 mg Documented by: Lactated Ringer's (Ringers, Lactated) 1,000 mls @ 1,000 mls/hr IV BOLUS ONE Stop: 05/07/20 00:00 Last Admin: 05/06/20 23:24 Dose: 1,000 mls/hr Documented by: Lactated Ringer's (Ringers, Lactated) 1,000 mls @ 1,000 mls/hr IV BOLUS ONE Stop: 05/07/20 00:01 Last Admin: 05/06/20 23:55 Dose: 1,000 mls/hr Documented by: Lactated Ringer's (Ringers, Lactated) 1,000 mls @ 150 mls/hr IV ASDIRECTED [facility] Last Admin: 05/07/20 18:48 Dose: 150 mls/hr Documented by: Lactated Ringer's (Ringers, Lactated) Confirm Administered Dose 1,000 mls @ as directed .ROUTE .STK-MED ONE Stop: 05/07/20 07:48 Lorazepam (Ativan) 1 mg IM Q4H PRN PRN Reason: Anxiety Midazolam HCl (Versed 1 Mg/Ml) Confirm Administered Dose 2 mg .ROUTE .STK-MED ONE Stop: 05/07/20 07:26 Ondansetron HCl (Zofran) 4 mg IVPUSH ONETIME ONE Stop: 05/06/20 23:23 Last Admin: 05/06/20 23:39 Dose: 4 mg Documented by: Ondansetron HCl (Zofran) Confirm Administered Dose 4 mg .ROUTE .STK-MED ONE Stop: 05/07/20 07:48 Pantoprazole Sodium (Protonix Iv) 80 mg IVPUSH .BOLUS [facility] Last Admin: 05/06/20 23:30 Dose: 80 mg Documented by: Pantoprazole Sodium (Protonix Iv) 40 mg IVPUSH ONETIME ONE Stop: 05/07/20 08:31 Last Admin: 05/07/20 09:07 Dose: 40 mg Documented by: Propofol (Diprivan 20 Ml) Confirm Administered Dose 200 mg .ROUTE .STK-MED ONE Stop: 05/07/20 07:26 Propofol (Diprivan 20 Ml) Confirm Administered Dose 200 mg .ROUTE .STK-MED ONE Stop: 05/07/20 07:45 Sucralfate (Carafate) 1 gm PO ONETIME ONE Stop: 05/06/20 23:23 Last Admin: 05/06/20 23:43 Dose: 1 gm Documented by: - Exam Quality Assessment: Supplemental Oxygen, DVT Prophylaxis General: Alert, Oriented, Cooperative, Mild Distress Lungs: Clear to Auscultation, Normal Respiratory Effort Cardiovascular: Regular Rate, Regular Rhythm GI/Abdominal Exam: Soft, Non-Tender, No Organomegaly, No Distention Extremities: Non-Tender, No Pedal Edema Sepsis Event Note - Evaluation Sepsis Screening Result: No Definite Risk - Focused Exam Vital Signs: Vital Signs Temp Pulse Resp BP BP Pulse Ox 05/08/20 08:20 93 143/96 H 05/08/20 08:00 98.9 F 96 12 143/96 H 95 05/08/20 07:10 93 14 132/87 92 L 05/08/20 06:00 93 24 H 145/101 H 91 L 05/08/20 05:00 91 24 H 136/92 H 92 L 05/08/20 04:00 90 19 125/90 91 L 05/08/20 03:00 96 22 H 139/101 H 92 L 05/08/20 02:00 97.0 F 94 14 143/98 H 92 L 05/08/20 01:00 92 20 130/84 95 05/08/20 00:00 94 20 140/93 H 92 L - Problem List Review Problem List Initiated/Reviewed/Updated: Yes - My Orders Last 24 Hours: My Active Orders 05/07/20 13:18 Convert IV to Saline Lock [OM.PC] Routine 05/07/20 13:45 nadoloL [Naldol] 20 mg PO DAILY 05/08/20 04:00 ACTIN (SMOOTH MUSCLE) ANTIBODY Routine ABEBA W/REFLEX Routine CERULOPLASMIN Routine MITOCHONDRIAL (M2) ANTIBODY Routine 05/08/20 11:13 Abdomen Pelvis w Cont [CT] Urgent Chest 2V [CR] Urgent 05/08/20 14:00 Gabapentin [Neurontin] 400 mg PO Q8H 05/08/20 17:00 HGB [HEMOGLOBIN] [HEME] Stat 05/09/20 05:00 CBC WITH AUTO DIFF [HEME] Timed COMPREHENSIVE METABOLIC PN,CMP [CHEM] Timed INR,PT,PROTHROMBIN TIME [COAG] Timed - Plan Plan:: ASSESSMENT AND PLAN UPPER GI BLEED-noted to have esophageal erosions and ulcers with clots, no evidence of active bleeding. Also found to have esophageal varices consistent with probable underlying liver disease. -continuous infusion of Protonix -Clear liquid diet -Serial hemoglobin levels ALCOHOL WITHDRAWAL-stable since yesterday with only mild symptoms of withdrawal -Gabapentin 400 mg p.o. every 8 hours x4 days, then 200 mg p.o. every 8 hours x4 days -Alcohol withdrawal protocol -Thiamine and folic acid replacement PROBABLE HEPATIC CIRRHOSIS-esophageal varices noted on EGD. He will require further imaging and evaluation. Likely that heavy alcohol use has contributed although he is fairly young at 29. Will require evaluation for other possible causes of liver disease as well. Ultrasound obtained yesterday shows no evidence of obstruction, sludge and stones were noted in the gallbladder -Further laboratory evaluation; hepatitis panel pending, antimitochondrial antibody, antismooth muscle antibody, ferritin, ceruloplasmin, ABEBA -CT scan abdomen pelvis to evaluate elevated liver studies -Stop all alcohol use ESOPHAGEAL VARICES-likely secondary to underlying significant liver disease -Nadolol 20 mg p.o. daily, titrate dose upward as tolerated -Outpatient follow-up with gastroenterology MAINTENANCE ISSUES -DVT prophylaxis; anticoagulation not indicated with current GI bleed -GI prophylaxis; Protonix as above -Lazaro catheter; not indicated -Nutrition; n.p.o. -Nicotine dependence; not required CODE STATUS-FULL CODE ADMISSION STATUS-patient will be admitted to inpatient status, expect at least a 2 night hospital stay for evaluation and management of problems as outlined above. At the time of this admission I do not reasonably expected evaluation and management of this problem will require more than a 96 hour hospital stay. DISPOSITION-anticipate discharge to home after the hospital stay.
[2020-05-08] MEDS ORDERED: Iopamidol 612 MG/ML 500 ML Multipack Bottle IV ONE (11:34)
[2020-05-08] MEDS ORDERED: Sodium Chloride 0.9% 10 ML Syringe FLUSH ONE (11:34)
--- NOTE | 2020-05-08 12:48 | CRLCT ---
INDICATION: Elevated liver enzymes. COMPARISON: 05/07/2020. TECHNIQUE: CT of the abdomen pelvis with IV contrast. 150 cc Isovue-300. FINDINGS: Imaged lung bases are unremarkable. Hepatic steatosis with scattered areas of sparing in the liver parenchyma. Mildly nodular liver contour. Hepatomegaly with the liver measuring 24.2 cm in craniocaudal dimension. Splenomegaly measuring 15.6 cm in AP dimension. Gallbladder sludge is again noted. Adrenal glands, pancreas and kidneys are unremarkable. Gastroesophageal varices are present. Mild ascites. Bladder is nondistended. Submucosal fat in the ascending colon likely from prior inflammation or hepatic dysfunction. No evidence of bowel obstruction. No enlarged lymph nodes identified in the abdomen or pelvis. Bones are unremarkable. IMPRESSION: 1. Possible nodular liver contour raising question of cirrhotic liver morphology. 2. Hepatic steatosis, and hepatosplenomegaly. 3. Gastroesophageal varices likely from underlying portal hypertension. 4. Mild ascites. 5. Gallbladder sludge. Please note that all CT scans at this facility use dose modulation, iterative reconstruction, and/or weight-based dosing when appropriate to reduce radiation dose to as low as reasonably achievable. Dictated by Onur Carbajal MD @ May 08 2020 12:40PM Signed by Dr. Onur Carbajal @ May 08 2020 12:46PM
[2020-05-08] MEDS: Magnesium Sulfate/Water 2 GM in Premix Bag 1 BAG IV SCH (19:42)
[2020-05-08] MEDS: LORazepam 1 MG Tab PO SCH (21:14)
[2020-05-09] MEDS: Magnesium Sulfate/Water 2 GM in Premix Bag 1 BAG IV SCH (01:03)
[2020-05-09] MEDS: Gabapentin 400 MG Cap PO SCH (05:46)
--- NOTE | 2020-05-09 07:12 | OR ---
DATE OF PROCEDURE: 05/07/2020 SURGEON: Alex Varela MD PREOPERATIVE DIAGNOSIS: Upper gastrointestinal bleeding. POSTOPERATIVE DIAGNOSIS: Upper gastrointestinal bleeding associated with: 1. Large extensive esophageal varices. 2. Focal small ulcer at the esophagogastric junction. 3. No active bleeding, but small ulcer at esophagogastric junction covered with clots. OPERATIVE PROCEDURE: Esophagogastroduodenoscopy with antral biopsies for CLOtest. ANESTHESIA: IV sedation. INDICATIONS FOR PROCEDURE: A 29-year-old male presenting with hematemesis as well as some rectal bleeding. He is noted to have engaged in quite heavy drinking for some time. The plan is to proceed with upper GI endoscopy with biopsies as indicated. Potential risks including bleeding and perforation were discussed, and the patient wishes to proceed. DETAILS OF PROCEDURE: The patient was taken to the operating room, placed in a left lateral decubitus position. IV sedation was administered, after which the upper GI endoscope was passed orally through the length of the esophagus into the stomach with retroflexion view of the fundus and thereafter through the pyloric channel and into the proximal duodenum. Findings included normal hypopharynx, larynx, and upper esophageal sphincter, and the esophagus, where the patient had quite striking, diffuse, very large esophageal varices. Photodocumentation of these was obtained. None of these were bleeding. The patient did have some active gastroesophageal reflux disease with some small erosions or ulcers at the esophagogastric junction. This had some scattered clot on their surface indicating likely recent bleeding source, but were not actively bleeding. Within the stomach, there was some old blood, but no active bleeding. The remainder of the gastric and duodenal exams were unremarkable. Of note, there were no obvious gastric varices in distinction with the very large extensive esophageal varices. Biopsies were then obtained from the antrum and sent for CLOtest for H pylori. We deferred doing any biopsies at the esophagogastric junction to avoid further bleeding issues and the procedure then concluded. At this point, we will consult Dr. Aleman regarding whether this would appear to be an advanced liver disease and move his Protonix dose up from 40 mg daily to 40 mg q.12 hours. Alex Varela MD /[id number]
[2020-05-09] MEDS ORDERED: Potassium Chloride 20 MEQ Tab.ER PO ONE (08:30)
[2020-05-09] MEDS: Pantoprazole 80 MG in Sodium Chloride 0.9% 100 ML IV SCH (08:43)
[2020-05-09] MEDS: Thiamine 100 MG Tab PO SCH (08:54)
[2020-05-09] MEDS: Folic Acid 1 MG Tab PO SCH (08:55)
--- NOTE | 2020-05-09 10:48 | PCM.DCSUM1 ---
Discharge Summary - Hospital Course Brief History: Mr. Ruiz is a 29-year-old gentleman who was admitted through the emergency department with epigastric abdominal pain and hematemesis, secondary to an upper GI bleed. - Discharge Data Discharge Date: 05/09/20 Discharge Disposition: Home, Self-Care 01 Condition: Stable - Referral to Home Health Primary Care Physician: PCP None - Discharge Diagnosis/Problem(s) (1) Hypokalemia SNOMED Code(s): 43182114 ICD Code: E87.6 - HYPOKALEMIA Status: Acute Current Visit: Yes (2) Hepatic cirrhosis SNOMED Code(s): 38750801 ICD Code: K74.60 - UNSPECIFIED CIRRHOSIS OF LIVER Status: Acute Current Visit: Yes (3) Alcohol abuse SNOMED Code(s): 32348657 ICD Code: F10.10 - ALCOHOL ABUSE, UNCOMPLICATED Status: Acute Current Visit: Yes (4) Esophageal ulcer with bleeding Status: Acute Current Visit: Yes (5) Portal hypertension SNOMED Code(s): 78945535 ICD Code: K76.6 - PORTAL HYPERTENSION Status: Acute Current Visit: Yes (6) Esophageal varices determined by endoscopy SNOMED Code(s): 93380135, 494036791 ICD Code: I85.00 - ESOPHAGEAL VARICES WITHOUT BLEEDING Status: Acute Current Visit: Yes - Patient Summary/Data Consults: Consultations 05/07/20 08:51 Consult to Physician [CONS] Urgent Consulting Provider: Shaka Aleman Call Completed to Consulting Physician: Yes Reason for Consult: likely advanced liver ds., large esophageal varicies. see photos Hospital Course: Mr. Ruiz is a 29-year-old gentleman who was admitted through the emergency department with hematemesis secondary to an upper GI bleed. Mr. Ruiz has had a long standing history of alcohol dependence and abuse. He admits that he has been drinking heavier than usual over the past month. Last night he experienced abrupt onset of epigastric abdominal pain associated with hematemesis. On evaluation in the emergency department hemoglobin was within normal range and he had no further episodes of hematemesis. He was admitted through the emergency department and had a mild drop in hemoglobin since admission. There has been no further evidence of active bleeding. EGD performed by Dr. Varela showed evidence of esophageal varices with esophageal erosions and ulcers consistent with a recent bleeding source. Because of his longstanding history of alcohol use he was started on gabapentin regimen for management of alcohol withdrawal. He received 400 mg every 8 hours for the first 2 days of hospitalization. Alcohol withdrawal protocol was also ordered and he showed only minimal evidence of alcohol withdrawal during hospitalization. There was no evidence of active bleeding, blood clots were present. He initially was given IV fluids for hydration as well as a Protonix bolus and continuous infusion of IV Protonix. He had no further episodes of bleeding through the rest of his hospital stay. INR and bilirubin were noted to be elevated, calculated discriminant function was 15. Bilirubin did increase from baseline up to 3.9 but was down to 3.6 on the day of discharge. He was started on nadolol 40 mg daily which he tolerated well prior to discharge. Laboratory studies were obtained and sent for further evaluation including ferritin, iron levels, ceruloplasmin, anti-smooth muscle antibodies, antimitochondrial antibody, ABEBA, and serology for hepatitis AB and C. Ultrasound was obtained and did show stones and sludge within the gallbladder but no evidence of ductal dilatation. CT scan of the abdomen pelvis was obtained and did show a nodular appearance of the liver consistent with cirrhosis. He was also found to have hepatosplenomegaly and evidence of esophageal varices. He will be discharged home and will follow a low-sodium diet. Primary care appointment will be scheduled with Eliu Redd and gastroenterology consult will be scheduled for further evaluation and management of esophageal varices and hepatic cirrhosis. He was given information concerning alcohol treatment options and AA groups within the [facility]. He has been informed that he needs to stop all alcohol intake. Activity will be as tolerated and he should remain on a low-sodium diet. He will be discharged home on nadolol 40 mg daily. He will also complete his course of gabapentin for management of alcohol withdrawal. He will take 400 mg every 8 hours for an additional 2 days, then 200 mg every 8 hours for 4 days. Protonix will be ordered 40 mg twice daily for 2 weeks then once daily thereafter. - Patient Instructions Diet: Low Sodium, No Alcoholic Beverages Activity: As Tolerated Other/Special Instructions: Please schedule follow-up appointment with Eliu Redd, within 1 week. Please schedule gastroenterology consult for further ev aluation of management of esophageal varices and hepatic cirrhosis. Please give patient information concerning available alcohol treatment options within the [facility]. - Discharge Plan *PRESCRIPTION DRUG MONITORING PROGRAM REVIEWED*: Not Applicable *COPY OF PRESCRIPTION DRUG MONITORING REPORT IN PATIENT MARY: Not Applicable Prescriptions/Med Rec: nadoloL [Corgard] 40 mg PO DAILY #30 tablet Gabapentin [Neurontin] 400 mg PO Q8H #48 cap Pantoprazole Sodium [Protonix] 40 mg PO BID #30 tablet. Home Medications: Home Meds Gabapentin [Neurontin] 400 mg PO Q8H #48 cap 05/09/20 [Rx] Pantoprazole Sodium [Protonix] 40 mg PO BID #30 tablet. 05/09/20 [Rx] nadoloL [Corgard] 40 mg PO DAILY #30 tablet 05/09/20 [Rx] Referrals: Eliu Luna, [employer]CIAL [employer]ING ADVISOR [Nurse Practitioner] - - Discharge Summary/Plan Comment DC Time >30 min.: No - Patient Data Vitals - Most Recent: Last Vital Signs Temp 97.0 F 05/09/20 08:00 Pulse 104 H 05/09/20 08:55 Resp 16 05/09/20 08:00 BP 130/91 H 05/09/20 08:55 Pulse Ox 94 L 05/09/20 08:00 Weight - Most Recent: 239 lb 1.6 oz I&O - Last 24 hours: Intake & Output 05/08/20 05/09/20 05/09/20 22:59 06:59 14:59 Intake Total 1030 540 Balance 1030 540 Lab Results - Last 24 hrs: Laboratory Results - last 24 hr 05/08/20 05/09/20 05/09/20 Range/Units 17:09 04:15 04:15 WBC 13.3 H (4.5-11.0) K/uL RBC 3.87 L (4.30-5.90) M/uL Hgb 13.1 13.2 (12.0-15.0) g/dL Hct 40.1 (40.0-54.0) % MCV 104 H (80-98) fL MCH 34 H (27-31) pg MCHC 33 (32-36) % Plt Count 117 L (150-400) K/uL Neut % (Auto) 82 H (36-66) % Lymph % (Auto) 12 L (24-44) % [place] % (Auto) 5 (2-6) % Eos % (Auto) 1 L (2-4) % Baso % (Auto) 1 (0-1) % PT 13.8 H (9.5-12.0) sec INR 1.27 H (0.80-1.20) Sodium (140-148) mmol/L Potassium (3.6-5.2) mmol/L Chloride (100-108) mmol/L Carbon Dioxide (21-32) mmol/L Anion Gap (5.0-14.0) mmol/L BUN (7-18) mg/dL Creatinine (0.8-1.3) mg/dL Est Cr Clr Drug Dosing mL/min Estimated GFR (MDRD) (>60) Glucose (74-106) mg/dL Calcium (8.5-10.1) mg/dL Magnesium (1.8-2.4) mg/dL Total Bilirubin (0.2-1.0) mg/dL AST (15-37) U/L ALT (12-78) U/L Alkaline Phosphatase (46-116) U/L Total Protein (6.4-8.2) g/dL Albumin (3.4-5.0) g/dL Globulin (2.3-3.5) g/dL Albumin/Globulin Ratio (1.2-2.2) 05/09/ Range/Units 04:15 WBC (4.5-11.0) K/uL RBC (4.30-5.90) M/uL Hgb (12.0-15.0) g/dL Hct (40.0-54.0) % MCV (80-98) fL MCH (27-31) pg MCHC (32-36) % Plt Count (150-400) K/uL Neut % (Auto) (36-66) % Lymph % (Auto) (24-44) % [place] % (Auto) (2-6) % Eos % (Auto) (2-4) % Baso % (Auto) (0-1) % PT (9.5-12.0) sec INR (0.80-1.20) Sodium 135 L (140-148) mmol/L Potassium 3.3 L (3.6-5.2) mmol/L Chloride 98 L (100-108) mmol/L Carbon Dioxide 29 (21-32) mmol/L Anion Gap 11.3 (5.0-14.0) mmol/L BUN 8 (7-18) mg/dL Creatinine 1.0 (0.8-1.3) mg/dL Est Cr Clr Drug Dosing 129.01 mL/min Estimated GFR (MDRD) > 60 (>60) Glucose 84 (74-106) mg/dL Calcium 8.5 (8.5-10.1) mg/dL Magnesium 1.8 D (1.8-2.4) mg/dL Total Bilirubin 3.6 H (0.2-1.0) mg/dL AST 151 H (15-37) U/L ALT 25 (12-78) U/L Alkaline Phosphatase 124 H (46-116) U/L Total Protein 7.1 (6.4-8.2) g/dL Albumin 3.0 L (3.4-5.0) g/dL Globulin 4.1 H (2.3-3.5) g/dL Albumin/Globulin Ratio 0.7 L (1.2-2.2) ALDAIR Results - Last 24 hrs: Microbiology 05/07/20 08:26 CLOtest - Final Stomach NEGATIVE CLOTEST REFERENCE RANGE: NEGATIVE Med Orders - Current: Current Medications Folic Acid (Folic Acid) 1 mg PO DAILY [facility] Last Admin: 05/09/20 08:55 Dose: 1 mg Documented by: Gabapentin (Neurontin) 400 mg PO Q8H [facility] Stop: 05/11/20 06:01 Last Admin: 05/09/20 05:46 Dose: 400 mg Documented by: Pantoprazole Sodium 80 mg/ (Sodium Chloride) 100 mls @ 10 mls/hr IV Q10H [facility] Last Admin: 05/09/20 08:43 Dose: 10 mls/hr Documented by: Lorazepam (Ativan) 0 mg IV ASDIRECTED [facility]; Protocol Lorazepam (Ativan) 0 mg PO ASDIRECTED [facility]; Protocol Last Admin: 05/08/20 21:14 Dose: 1 mg Documented by: Nadolol (Naldol) 40 mg PO DAILY [facility] Last Admin: 05/09/20 08:55 Dose: 40 mg Documented by: Ondansetron HCl (Zofran) 4 mg IVPUSH Q4H PRN PRN Reason: Nausea/Vomiting Last Admin: 05/07/20 04:14 Dose: 4 mg Documented by: Thiamine HCl (Vitamin B-1) 100 mg PO DAILY [facility] Last Admin: 05/09/20 08:54 Dose: 100 mg Documented by: Discontinued Medications Famotidine (Pepcid) 20 mg IVPUSH ONETIME ONE Stop: 05/06/20 23:06 Last Admin: 05/06/20 23:24 Dose: 20 mg Documented by: Fentanyl (Sublimaze) Confirm Administered Dose 100 mcg .ROUTE .STK-MED ONE Stop: 05/07/20 07:26 Gabapentin (Neurontin) 400 mg PO Q8H [facility] Stop: 05/11/20 02:31 Last Admin: 05/08/20 03:07 Dose: 400 mg Documented by: Lactated Ringer's (Ringers, Lactated) 1,000 mls @ 1,000 mls/hr IV BOLUS ONE Stop: 05/07/20 00:00 Last Admin: 05/06/20 23:24 Dose: 1,000 mls/hr Documented by: Lactated Ringer's (Ringers, Lactated) 1,000 mls @ 1,000 mls/hr IV BOLUS ONE Stop: 05/07/20 00:01 Last Admin: 05/06/20 23:55 Dose: 1,000 mls/hr Documented by: Lactated Ringer's (Ringers, Lactated) 1,000 mls @ 150 mls/hr IV ASDIRECTED [facility] Last Admin: 05/07/20 18:48 Dose: 150 mls/hr Documented by: Lactated Ringer's (Ringers, Lactated) Confirm Administered Dose 1,000 mls @ as directed .ROUTE .STK-MED ONE Stop: 05/07/20 07:48 Pantoprazole Sodium 80 mg/ (Sodium Chloride) 100 mls @ 10 mls/hr IV Q10H [facility] Stop: 05/08/20 12:55 Last Admin: 05/08/20 04:34 Dose: Not Given Documented by: Sodium Chloride (Normal Saline) 85 mls @ 3.5 mls/sec IV ASDIRECTED [facility] Stop: 05/08/20 11:46 Last Admin: 05/08/20 12:09 Dose: 2.7 mls/sec Documented by: Magnesium Sulfate 2 gm/ Premix 50 mls @ 25 mls/hr IV Q6H [facility] Stop: 05/09/20 02:44 Last Admin: 05/09/20 01:03 Dose: 25 mls/hr Documented by: Iopamidol (Isovue-300 (61%)) 150 ml IV ONETIME ONE Stop: 05/08/20 11:35 Last Admin: 05/08/20 12:08 Dose: 150 ml Documented by: Lorazepam (Ativan) 1 mg IM Q4H PRN PRN Reason: Anxiety Midazolam HCl (Versed 1 Mg/Ml) Confirm Administered Dose 2 mg .ROUTE .STK-MED ONE Stop: 05/07/20 07:26 Nadolol (Naldol) 20 mg PO DAILY [facility] Last Admin: 05/08/20 08:20 Dose: 20 mg Documented by: Ondansetron HCl (Zofran) 4 mg IVPUSH ONETIME ONE Stop: 05/06/20 23:23 Last Admin: 05/06/20 23:39 Dose: 4 mg Documented by: Ondansetron HCl (Zofran) Confirm Administered Dose 4 mg .ROUTE .STK-MED ONE Stop: 05/07/20 07:48 Pantoprazole Sodium (Protonix Iv) 80 mg IVPUSH .BOLUS [facility] Last Admin: 05/06/20 23:30 Dose: 80 mg Documented by: Pantoprazole Sodium (Protonix Iv) 40 mg IVPUSH ONETIME ONE Stop: 05/07/20 08:31 Last Admin: 05/07/20 09:07 Dose: 40 mg Documented by: Potassium Chloride (Klor-Con M20) 40 meq PO ONETIME ONE Stop: 05/09/20 08:31 Last Admin: 05/09/20 08:57 Dose: 40 meq Documented by: Propofol (Diprivan 20 Ml) Confirm Administered Dose 200 mg .ROUTE .STK-MED ONE Stop: 05/07/20 07:26 Propofol (Diprivan 20 Ml) Confirm Administered Dose 200 mg .ROUTE .STK-MED ONE Stop: 05/07/20 07:45 Sodium Chloride (Saline Flush) 10 ml FLUSH ONETIME ONE Stop: 05/08/20 11:35 Last Admin: 05/08/20 12:08 Dose: 10 ml Documented by: Sucralfate (Carafate) 1 gm PO ONETIME ONE Stop: 05/06/20 23:23 Last Admin: 05/06/20 23:43 Dose: 1 gm Documented by: - Exam General: Reports: Alert, Oriented, Cooperative, No Acute Distress Lungs: Reports: Clear to Auscultation, Normal Respiratory Effort Cardiovascular: Reports: Regular Rate, Regular Rhythm, No Murmurs GI/Abdominal Exam: Soft, Non-Tender, No Organomegaly, No Distention Extremities: Non-Tender, No Pedal Edema
--- NOTE | 2020-05-09 12:08 | CR ---
CHEST: 2 view CLINICAL HISTORY:Cough COMPARISON:None FINDINGS: The heart size, pulmonary vascularity and hilar structures are normal. No infiltrate effusion or pneumothorax is seen. IMPRESSION: No acute cardiopulmonary process.
[2020-05-10 09:10] LABS: HBSAG SCREEN Negative (Negative); HEP A AB, IGM Negative (Negative); HEP B CORE AB, IGM Negative (Negative); HEP C VIRUS AB <0.1 s/co ratio (0.0-0.9)
== END 2020-05-09 11:58 | disposition home or self-care (01) | DRG 432 ==
LOC: JP.ED 22:33 → JP.ICU 05-07 00:13
PROVIDERS: ADMIT Family Medicine; ATTEND Hospitalist
PROC: 0DB78ZX Excision of Stomach, Pylorus, Via Natural or Artificial Opening Endoscopic, Diagnostic (ICD-10-PCS; principal; 2020-05-07)
DX: K74.60 Unspecified cirrhosis of liver (principal); I85.11 Secondary esophageal varices with bleeding; K22.11 Ulcer of esophagus with bleeding; K76.6 Portal hypertension; F10.239 Alcohol dependence with withdrawal, unspecified; E87.6 Hypokalemia; R16.2 Hepatomegaly with splenomegaly, not elsewhere classified; Z79.899 Other long term (current) drug therapy; Z20.828 Contact with and (suspected) exposure to other viral communicable diseases
CPT/HCPCS: 36415; 71046; 71046-26; 74177; 76705; 80053; 80074; 82390; 82728; 83516; 83550; 83605; 83735; 85018; 85025; 85027; 85610; 86255; 86850; 86900; 86901; 86920; 86922; 87081; 96374; 96375; 99285-25; A9270-GY; C9113; J2250; J2405; J2704; J3010; J3475; J3490; J7120; Q9967; U0002